=== PATIENT | female | born 1945 | race Caucasian/White ===

== ENCOUNTER 2016-06-11 08:27 | Outpatient (CLI) | payer MEDICARE, BC | END 2016-06-11 08:28 | disposition home or self-care (01) | DX: E10.9 Type 1 diabetes mellitus without complications (principal); E03.9 Hypothyroidism, unspecified ==

== ENCOUNTER 2016-06-15 06:57 | Outpatient (CLI) | payer BC, MEDICARE | END 2016-06-15 23:59 | DX: E10.9 Type 1 diabetes mellitus without complications (principal) ==

== ENCOUNTER 2016-06-30 07:41 | Outpatient (CLI) | payer MEDICARE, BC | END 2016-06-30 07:42 | disposition home or self-care (01) | DX: E10.9 Type 1 diabetes mellitus without complications (principal); Z79.899 Other long term (current) drug therapy; E55.9 Vitamin D deficiency, unspecified ==

== ENCOUNTER 2016-09-15 08:01 | Outpatient (CLI) | payer MEDICARE, BC ==
[2016-09-15 11:21] LABS: HEMOGLOBIN A1C 0.77 g/dL
== END 2016-09-15 08:02 | disposition home or self-care (01) ==
LOC: LAB.F 08:01
PROVIDERS: ATTEND Nurse Practitioner
DX: E10.9 Type 1 diabetes mellitus without complications (principal)
CPT/HCPCS: 36415; 83036

== ENCOUNTER 2016-12-22 07:27 | Outpatient (CLI) | payer MEDICARE, BC ==
[2016-12-22 12:46] LABS: HEMOGLOBIN A1C 0.8 g/dL
== END 2016-12-22 07:28 | disposition home or self-care (01) ==
LOC: LAB.F 07:27
PROVIDERS: ATTEND Internal Medicine Endocrinology, Diabetes & Metabolism
DX: E10.9 Type 1 diabetes mellitus without complications (principal)
CPT/HCPCS: 36415; 83036

== ENCOUNTER 2016-12-22 16:52 | Outpatient (CLI) | payer MEDICARE, BC | END 2016-12-22 16:53 | disposition EMS.NT | LOC: EMS 16:52 | PROVIDERS: ATTEND Surgery | DX: R42 Dizziness and giddiness (principal) ==

== ENCOUNTER 2017-01-12 07:29 | Outpatient (CLI) | payer MEDICARE, BC ==
[2017-01-12 12:00] LABS: BASOPHILS # (AUTO) 0.1 10^3/uL (0.0-0.1); BASOPHILS % (AUTO) 1.1 %; EOSINOPHILS # (AUTO) 0.2 10^3/uL (0.0-0.7); EOSINOPHILS % (AUTO) 3.4 %; HGB - HEMOGLOBIN 12.7 g/dL (12.0-16.0); LYMPHOCYTES % (AUTO) 15.4 %; MEAN CORPUSCULAR HEMOGLOBIN 31.6 pg (27.0-31.0); MEAN CORPUSCULAR HGB CONC 34.4 g/dL (32.0-36.0); MEAN CORPUSCULAR VOLUME 91.7 fL (81.0-99.0); MONOCYTES # (AUTO) 0.7 10^3/uL (0.0-1.0); MONOCYTES % (AUTO) 9.9 %; NEUTROPHILS # (AUTO) 4.8 10^3/uL (1.5-6.6); NEUTROPHILS % (AUTO) 70.2 %; NUCLEATED RED BLOOD CELLS AUTO 0.1 /100WBC; RED BLOOD COUNT 4.03 10^6/uL (4.20-5.40); RED CELL DISTRIBUTION WIDTH 13.5 % (12.0-15.0); UNCORRECTED WHITE BLOOD COUNT 6.8 x10^3/uL; WHITE BLOOD COUNT 6.8 x10^3/uL (4.8-10.8)
[2017-01-12 12:16] LABS: CHOL/HDL RATIO 2.5 (<4.4); CHOLESTEROL 199 mg/dL; GLUCOSE,FASTING 108 mg/dL (70-100); HDL CHOLESTEROL 79 mg/dL; LDL/HDL RATIO 1.4 (<4.4); TRIGLYCERIDES 40 mg/dL; VLDL CHOLESTEROL 8 mg/dL
[2017-01-12 12:30] LABS: THYROID STIMULATING HORMONE 4.19 uIU/mL (0.34-5.60)
[2017-01-12 12:32] LABS: HEMOGLOBIN A1C 0.77 g/dL
[2017-01-12 12:36] LABS: FERRITIN 46.6 ng/mL (11.0-306.8)
[2017-01-13 13:11] LABS: HOMOCYSTEINE 10.4 umol/L (<10.4)
[2017-01-14 20:01] LABS: 18 KD (IGG) BAND NON-REACTIVE; 23 KD (IGG) BAND NON-REACTIVE; 28 KD (IGG) BAND NON-REACTIVE; 30 KD (IGG) BAND NON-REACTIVE; 39 KD (IGG) BAND NON-REACTIVE; 41 KD (IGG) BAND REACTIVE; 41 KD (IGM) BLOT NON-REACTIVE; 45 KD (IGG) BAND NON-REACTIVE; 58 KD (IGG) BAND NON-REACTIVE; 66 KD (IGG) BAND NON-REACTIVE; 93 KD (IGG) BAND NON-REACTIVE
[2017-01-14 22:17] LABS: COPPER 114 mcg/dL (70-175)
== END 2017-01-12 07:30 | disposition home or self-care (01) ==
LOC: LAB.F 07:29
PROVIDERS: ATTEND Emergency Medicine
DX: D64.9 Anemia, unspecified (principal); E66.3 Overweight; E83.10 Disorder of iron metabolism, unspecified; E78.4 Other hyperlipidemia; E55.9 Vitamin D deficiency, unspecified; E11.9 Type 2 diabetes mellitus without complications; I51.9 Heart disease, unspecified; E78.2 Mixed hyperlipidemia; E53.9 Vitamin B deficiency, unspecified; E83.00 Disorder of copper metabolism, unspecified; E83.2 Disorders of zinc metabolism
CPT/HCPCS: 36415; 80061; 81599; 82306; 82525; 82607; 82728; 82947; 83036; 83090; 84443; 84481; 85025; 86141; 86617

== ENCOUNTER 2017-08-16 08:00 | Outpatient (CLI) | payer MEDICARE, BC ==
[2017-08-16 11:04] LABS: BASOPHILS # (AUTO) 0.1 10^3/uL (0.0-0.1); BASOPHILS % (AUTO) 0.9 %; EOSINOPHILS # (AUTO) 0.3 10^3/uL (0.0-0.7); EOSINOPHILS % (AUTO) 5.7 %; LYMPHOCYTES # (AUTO) 1.6 10^3/uL (1.5-3.5); LYMPHOCYTES % (AUTO) 26.4 %; MEAN CORPUSCULAR HEMOGLOBIN 31.7 pg (27.0-31.0); MEAN CORPUSCULAR HGB CONC 34.6 g/dL (32.0-36.0); MEAN CORPUSCULAR VOLUME 91.6 fL (81.0-99.0); MEAN PLATELET VOLUME 7.4 fL (7.9-10.8); MONOCYTES # (AUTO) 0.7 10^3/uL (0.0-1.0); MONOCYTES % (AUTO) 11.9 %; NEUTROPHILS # (AUTO) 3.4 10^3/uL (1.5-6.6); NEUTROPHILS % (AUTO) 55.1 %; PLT - PLATELET COUNT 296 10^3/uL (130-450); RED BLOOD COUNT 4.11 10^6/uL (4.20-5.40); RED CELL DISTRIBUTION WIDTH 13.6 % (12.0-15.0); WHITE BLOOD COUNT 6.1 x10^3/uL (4.8-10.8)
[2017-08-16 11:18] LABS: ALBUMIN/GLOBULIN RATIO 1.4 (1.0-2.2); ALKALINE PHOSPHATASE 69 IU/L (42-121); ALT ALANINE AMINOTRANSFERASE 17 IU/L (10-60); AST ASPARTATE AMINOTRANSFERASE 27 IU/L (10-42); BILIRUBIN,TOTAL 0.9 mg/dL (0.2-1.0); BUN - BLOOD UREA NITROGEN 14 mg/dL (6-20); CALCIUM 9.4 mg/dL (8.5-10.3); CARBON DIOXIDE - CO2 30 mmol/L (21-32); CHLORIDE 96 mmol/L (101-111); CHOL/HDL RATIO 2.7 (<4.4); CHOLESTEROL 191 mg/dL; CREATININE 0.5 mg/dL (0.4-1.0); GFR - MDRD 121 (>89); HDL CHOLESTEROL 70 mg/dL; SODIUM 134 mmol/L (135-145); TOTAL PROTEIN 6.8 g/dL (6.7-8.2)
[2017-08-16 11:40] LABS: LDL CHOLESTEROL,DIRECT 99 mg/dL; LDLD/HDL RATIO 1.4 (<4.4)
[2017-08-16 11:41] LABS: GLUCOSE 48 mg/dL (70-100)
[2017-08-17 14:12] LABS: HEPATITIS C ANTIBODY NON-REACTIVE (NON-REACTIVE)
== END 2017-08-16 08:01 | disposition home or self-care (01) ==
LOC: LAB.F 08:00
PROVIDERS: ATTEND Internal Medicine
DX: E03.9 Hypothyroidism, unspecified (principal); E78.5 Hyperlipidemia, unspecified; E10.9 Type 1 diabetes mellitus without complications; I10 Essential (primary) hypertension; Z72.89 Other problems related to lifestyle; Z79.899 Other long term (current) drug therapy
CPT/HCPCS: 36415; 80053; 80061; 83721; 84443; 85025; 86803

== ENCOUNTER 2017-09-10 07:21 | Outpatient (CLI) | payer MEDICARE, BC ==
[2017-09-10 10:40] LABS: HB2 TOTAL 14.9 g/dL; HEMOGLOBIN A1C 0.8 g/dL; HEMOGLOBIN A1C % 7.1 % (4.6-6.2)
== END 2017-09-10 07:22 | disposition home or self-care (01) ==
LOC: LAB.F 07:21
PROVIDERS: ATTEND Nurse Practitioner
DX: E10.9 Type 1 diabetes mellitus without complications (principal)
CPT/HCPCS: 36415; 83036

== ENCOUNTER 2017-10-20 10:46 | Outpatient (CLI) | payer MEDICARE, BC ==
--- NOTE | 2017-10-21 16:52 | Mammography Report ---
Procedure Date: 10/20/2017 Accession Number: [id number] / [id number] Procedure: ELIE - Screening Mammo Dig Bilat CPT Code: FULL RESULT: EXAM: Screening Mammo Dig Bilat DATE: 10/20/2017 11:49 AM CLINICAL HISTORY: 72-year-old with history of benign breast biopsy for screening TECHNIQUE: Bilateral CC and MLO views were obtained. COMPARISON: 01/20/2016 FINDINGS: The breasts demonstrate scattered fibroglandular densities bilaterally. Postbiopsy changes are stable. No suspicious masses, clustered microcalcifications, or regions of architectural distortion are identified. IMPRESSION: Benign findings RECOMMENDATION: Routine annual screening unless otherwise clinically indicated. BIRADS CATEGORY 2: Benign findings STANDARD QUALIFYING STATEMENTS: 1. This examination was reviewed with the aid of Computer-Aided Detection (CAD). 2. A negative or benign imaging report should not delay biopsy if clinically suspicious findings are present. Consider surgical consultation if warrented. More than 5% of cancers are not identified by imaging. 3. Dense breasts may obscure an underlying neoplasm.
== END 2017-10-20 10:47 | disposition home or self-care (01) ==
LOC: DI 10:46
PROVIDERS: ATTEND Internal Medicine
DX: Z12.31 Encounter for screening mammogram for malignant neoplasm of breast (principal)
CPT/HCPCS: 77067

== ENCOUNTER 2018-01-05 09:22 | Outpatient (CLI) | payer MEDICARE, BC ==
[2018-01-05 18:23] LABS: HEMOGLOBIN A1C 0.74 g/dL; HEMOGLOBIN A1C % 6.7 % (4.6-6.2)
== END 2018-01-05 09:23 | disposition home or self-care (01) ==
LOC: LAB.F 09:22
PROVIDERS: ATTEND Nurse Practitioner
DX: E10.9 Type 1 diabetes mellitus without complications (principal)
CPT/HCPCS: 36415; 83036

== ENCOUNTER 2018-03-28 09:28 | Emergency (ER) | payer MEDICARE, BC ==
[2018-03-28 12:14] VITALS: BP 143/65
--- NOTE | 2018-03-28 12:20 | XRAY Report ---
Reason: pain, bleeding s/p replacement Procedure Date: 03/28/2018 Accession Number: [id number] / [id number] Procedure: XR - Knee 3 View LT CPT Code: FULL RESULT: EXAM: LEFT KNEE RADIOGRAPHY EXAM DATE: 03/28/2018 11:26 AM. CLINICAL HISTORY: Pain, bleeding s/p replacement. COMPARISON: None. TECHNIQUE: 3 views. FINDINGS: Knee prosthesis is noted. Alignment appears normal. There is soft tissue swelling. Soft tissue air may be seen in the postoperative period. IMPRESSION: Knee prosthesis appears normally aligned. There is persistent soft tissue swelling. RADIA
--- NOTE | 2018-03-28 13:09 | ED Physician Documentation ---
PD HPI WOUND RECHECK - Stated complaint Stated Complaint: WOUND CHECK - Chief complaint Chief Complaint: Wound - Histroy obtained from History obtained from: Patient - History of Present Illness Location: Left Lower Extremity Timing - onset: How many days ago (2) Pain level max: 0 Pain level now: 0 Associated symptoms: Swelling, Drainage. No: Fever, Redness, Pain Similar symptoms before: Has not had sx before - Additional information Additional information: 72-year-old female with history of left knee replacement done at [facility] in [place] a week ago here with complaint of left knee bleeding for the past 2 days after excessively doing some physical therapy previous to that. She stated that she noticed that blood would be oozing when she is walking a lot. She had called her orthopedic clinic but there was no quick response. She has an appointment with her orthopedic doctor this coming . Review of Systems Ten Systems: 10 systems reviewed and negative Constitutional: denies: Fever, Myalgias Musculoskeletal: reports: Extremity swelling. denies: Back pain, Extremity pain, Joint pain Neurologic: denies: Generalized weakness, Focal weakness, Numbness PD PAST MEDICAL HISTORY - Past Medical History Past Medical History: Yes Endocrine/Autoimmune: Type 2 diabetes - Past Surgical History Past Surgical History: Yes Ortho: Knee replacement - Present Medications Home Medications: Ambulatory Orders Medication Instructions Recorded Confirmed Acetaminophen [Tylenol Extra 500 mg PO 03/28/18 Strength] Aspirin 81 mg PO 03/28/18 Atorvastatin [Lipitor] 0 mg 03/28/18 Celecoxib 200 mg PO 03/28/18 Fluticasone [Flonase] 1 sprays KIKI DAILY 03/28/18 03/28/18 Fluticasone/Salmeterol [Advair 1 each IH 03/28/18 100-50 Diskus] Levothyroxine Sodium [Synthroid] 137 mcg PO 03/28/18 Losartan/Hydrochlorothiazide 1 each PO 03/28/18 [Hyzaar 100-25 Tablet] Minocycline HCl 100 mg PO 03/28/18 Omeprazole 03/28/18 Oxycodone HCl 5 mg PO 03/28/18 Pramipexole Di-HCl [Mirapex] 0.125 mg PO 03/28/18 Ranitidine HCl [Zantac] 300 mg PO 03/28/18 Senna [Senokot] 03/28/18 03/28/18 amLODIPine [Norvasc] 03/28/18 - Allergies Allergies/Adverse Reactions: Allergies Allergy/AdvReac Type Severity Reaction Status Date / Time Sulfa (Sulfonamide Allergy Rash Verified 03/28/18 10:02 Antibiotics) ACEIs Allergy Dizziness Uncoded 03/28/18 10:02 - Social History Does the pt smoke?: No Smoking Status: Never smoker Does the pt drink ETOH?: No Does the pt have substance abuse?: No - Immunizations Immunizations are current?: Yes PD ED PE NORMAL - Vitals Vital signs reviewed: Yes - General General: Alert and oriented X 3, No acute distress, Well developed/nourished - HEENT HEENT: Moist mucous membranes - Cardiac Cardiac: RRR, Strong equal pulses - Respiratory Respiratory: No respiratory distress - Derm Derm: Warm and dry - Extremities Extremities: No calf tenderness / cord, Other (Left knee with swelling and ecchymosis from surgical procedure. Incision approximated no dehiscence but with scant amount of blood oozing out of the center of this incision. Sensation intact. Temperature normal. Pulses +2 from the popliteal, DP and PT.) - Neuro Neuro: Alert and oriented X 3 - Psych Psych: Normal mood, Normal affect Results - Vitals Vitals: Vital Signs - 24 hr 03/28/18 03/28/18 09:57 12:13 Temperature 36.5 C Heart Rate 67 65 Respiratory 14 18 Rate Blood Pressure 120/60 143/65 H O2 Saturation 97 96 Oxygen O2 Source Room air PD MEDICAL DECISION MAKING - ED course Complexity details: reviewed results, re-evaluated patient, considered differential (Postop complication, hematoma, poor healing, dehiscence), d/w patient, d/w family ED course: 1245 x-ray resulted. Patient inform about this. Instructed on incision/wound care. Instructed to apply pressure if bleeding. Instructed to keep her orthopedic appointment this coming . Instructed to elevate left knee or leg to decrease swelling.Patient will be given a copy CD of her x-ray to bring to her orthopedic doctor's appointment. Departure - Departure Disposition: 01 Home, Self Care Clinical Impression: Postoperative complication Qualifiers: Surgical complication system/body Area: musculoskeletal system Surgical complication type: hematoma History of knee replacement Qualifiers: Laterality: left Qualified Code(s): Z96.652 - Presence of left artificial knee joint Condition: Stable Instructions: Incision Care Comments: Left knee wound care: Keep the area clean and dry. Change dressing daily and as needed. First apply nonstick dressing then 4 x 4 than thick surgical pad dressing and wrap with gauze. Elevate your left knee and leg to decrease the swelling. Take it easy on your exercises and physical therapy until reevaluated by orthopedic doctor this coming . At your appointment bring the CD copy of the x-ray that was done here in the emergency room. If worse return to the emergency room.
== END 2018-03-28 13:40 | disposition home or self-care (01) ==
LOC: ED 09:28
DX: M96.830 Postprocedural hemorrhage of a musculoskeletal structure following a musculoskeletal system procedure (principal); Z96.652 Presence of left artificial knee joint; E11.9 Type 2 diabetes mellitus without complications; Z79.82 Long term (current) use of aspirin
CPT/HCPCS: 99283

== ENCOUNTER 2018-04-25 14:46 | Outpatient (CLI) | payer MEDICARE, BC | END 2018-04-25 14:47 | disposition EMS.NT | LOC: EMS 14:46 | PROVIDERS: ATTEND Surgery | DX: Z03.89 Encounter for observation for other suspected diseases and conditions ruled out (principal) ==

== ENCOUNTER 2018-11-24 12:47 | Outpatient (CLI) | payer MEDICARE, BC ==
[2018-11-24 17:26] LABS: CALCIUM 9.7 mg/dL (8.5-10.3); CREATININE 0.5 mg/dL (0.4-1.0)
[2018-11-24 17:34] LABS: CREATININE,URINE 44.8 mg/dL; MICROALBUM/CREATININE RATIO,UR 6.7 ug/mg (<30.0); MICROALBUMIN,URINE 0.3 mg/dL (0-300.0)
[2018-11-24 18:21] LABS: HB2 TOTAL 13.3 g/dL; HEMOGLOBIN A1C 0.59 g/dL; HEMOGLOBIN A1C % 6.2 % (4.6-6.2)
== END 2018-11-24 12:48 | disposition home or self-care (01) ==
LOC: LAB.S 12:47
PROVIDERS: ATTEND Nurse Practitioner
DX: E10.9 Type 1 diabetes mellitus without complications (principal)
CPT/HCPCS: 36415; 80048; 82043; 82570; 83036

== ENCOUNTER 2019-03-23 13:32 | Emergency (ER) | payer MEDICARE, BC ==
[2019-03-23 13:43] VITALS: BP 139/71
--- NOTE | 2019-03-23 14:12 | XRAY Report ---
Reason: cough, rt sided chest pain with inspiration Procedure Date: 03/23/2019 Accession Number: [id number] / [id number] Procedure: XR - Chest 2 View X-Ray CPT Code: 92972 Final Report FULL RESULT: EXAM: CHEST RADIOGRAPHY EXAM DATE: 03/23/2019 01:57 PM. CLINICAL HISTORY: Cough for 3 days, right-sided chest pain with inspiration. COMPARISON: None. TECHNIQUE: 2 views. FINDINGS: Lungs/Pleura: No focal opacities evident. No pleural effusion. No pneumothorax. Lung volumes are high and diaphragms are flattened. Mediastinum: Heart and mediastinal contours are unremarkable. Other: None. IMPRESSION: High lung volumes with flattened diaphragms can be seen with obstructive lung disease. Otherwise, no acute cardiopulmonary abnormality. RADIA
[2019-03-23] MEDS ORDERED: ALBUTEROL NEB 2.5 MG/3 ML INH STA (14:25)
--- NOTE | 2019-03-23 14:28 | ED Physician Documentation ---
PD HPI URI - Stated complaint Stated Complaint: SOA - Chief complaint Chief Complaint: Resp - History obtained from History obtained from: Patient - History of Present Illness Pain level max: 4 Pain level now: 3 Associated symptoms: Nasal congestion, Rhinorrhea. No: Fever, Chills Contributing factors: Sick contact Improves by: Rest Worsened by: Activity, Breathing - Additional information Additional information: 73-year-old female presents to the emergency department with rhinorrhea, congestion and coughing for the past several days. She states that her doctor called in albuterol inhaler and for her, but she has not picked it up yet. She also states that she has pain in the right chest when taking a deep breath. Worse with coughing as well. This is in the anterior right chest. No fevers. Better with rest Review of Systems Constitutional: denies: Fever, Chills GI: denies: Vomiting, Diarrhea Skin: denies: Rash Musculoskeletal: denies: Neck pain, Back pain Neurologic: denies: Headache PD PAST MEDICAL HISTORY - Past Medical History Past Medical History: Yes Endocrine/Autoimmune: Type 2 diabetes - Past Surgical History Past Surgical History: Yes Ortho: Knee replacement - Present Medications Home Medications: Ambulatory Orders Medication Instructions Recorded Confirmed Acetaminophen [Tylenol Extra 500 mg PO 03/28/18 Strength] Aspirin 81 mg PO 03/28/18 Atorvastatin [Lipitor] 0 mg 03/28/18 Celecoxib 200 mg PO 03/28/18 Fluticasone [Flonase] 1 sprays KIKI DAILY 03/28/18 03/28/18 Fluticasone/Salmeterol [Advair 1 each IH 03/28/18 100-50 Diskus] Levothyroxine Sodium [Synthroid] 137 mcg PO 03/28/18 Losartan/Hydrochlorothiazide 1 each PO 03/28/18 [Hyzaar 100-25 Tablet] Minocycline HCl 100 mg PO 03/28/18 Omeprazole 03/28/18 Oxycodone HCl 5 mg PO 03/28/18 Pramipexole Di-HCl [Mirapex] 0.125 mg PO 03/28/18 Senna [Senokot] 03/28/18 03/28/18 amLODIPine [Norvasc] 03/28/18 raNITIdine HCl [Zantac] 300 mg PO 03/28/18 Albuterol Sulf [Ventolin Hfa 1 - 2 puffs INH Q4HR PRN #1 inhaler 03/23/19 Inhaler] - Allergies Allergies/Adverse Reactions: Allergies Allergy/AdvReac Type Severity Reaction Status Date / Time Sulfa (Sulfonamide Allergy Rash Verified 03/23/19 13:43 Antibiotics) ACEIs Allergy Dizziness Uncoded 03/28/18 10:02 - Social History Does the pt smoke?: No Smoking Status: Never smoker Does the pt drink ETOH?: No Does the pt have substance abuse?: No - Immunizations Immunizations are current?: Yes PD ED PE NORMAL - Vitals Vital signs reviewed: Yes - General General: Alert and oriented X 3, No acute distress, Well developed/nourished - HEENT HEENT: PERRL, Ears normal, Moist mucous membranes, Pharynx benign - Neck Neck: Supple, no meningeal sign - Cardiac Cardiac: RRR, Strong equal pulses - Respiratory Respiratory: No respiratory distress, Other (Mildly diminished breath sounds bilaterally) - Abdomen Abdomen: Soft, Non tender, Non distended - Derm Derm: Warm and dry - Extremities Extremities: No edema - Neuro Neuro: Alert and oriented X 3 - Psych Psych: Normal mood, Normal affect Results - Vitals Vitals: Vital Signs - 24 hr 03/23/19 03/23/19 13:39 14:37 Temperature 36.4 C L Heart Rate 98 79 Respiratory 20 14 Rate Blood Pressure 139/71 H O2 Saturation 100 Oxygen O2 Source Room air - Rads (name of study) cxr Radiology: Prelim report reviewed, EMP read contemporaneously, See rad report (High lung volumes with flattened diaphragms can be seen with obstructive lung disease. Otherwise, no acute cardiopulmonary abnormality. ) PD MEDICAL DECISION MAKING - ED course Complexity details: reviewed results, re-evaluated patient, considered differential, d/w patient ED course: 73-year-old female presents to the emergency department that appears to be a viral upper respiratory infection. No pneumonia. Feels better after nebulizer treatment. She is well-appearing, nontoxic. Afebrile. No hypoxia. No respiratory distress. Patient counseled regarding signs and symptoms for which I believe and urgent re-evaluation would be necessary. Patient with good understanding of and agreement to plan and is comfortable going home at this time This document was made in part using voice recognition software. While efforts are made to proofread this document, sound alike and grammatical errors may occur. Departure - Departure Disposition: Home, Self Care Clinical Impression: Viral URI Condition: Good Instructions: ED URI Viral Follow-Up: Jessica Matson ARNP [Primary Care Provider] - Within 1 week Prescriptions: Albuterol Sulf [Ventolin Hfa Inhaler] 1 - 2 puffs INH Q4HR PRN #1 inhaler PRN Reason: Shortness Of Air/Wheezing Comments: Return if you worsen. Follow up with your doctor for further care. Your xray does not show any acute abnormalities today. Discharge Date/Time: 03/23/19 15:05
== END 2019-03-23 15:05 | disposition home or self-care (01) ==
LOC: ED 13:32
DX: J06.9 Acute upper respiratory infection, unspecified (principal); E11.9 Type 2 diabetes mellitus without complications
CPT/HCPCS: 71046; 94640; 99283; 99284

== ENCOUNTER 2019-09-14 12:49 | Outpatient (CLI) | payer MEDICARE, BC ==
[2019-09-14 15:51] LABS: BUN - BLOOD UREA NITROGEN 26 mg/dL (6-20); CALCIUM 9.6 mg/dL (8.5-10.3); CARBON DIOXIDE - CO2 32 mmol/L (21-32); CHLORIDE 95 mmol/L (101-111); CHOL/HDL RATIO 2.3 (<4.4); CHOLESTEROL 181 mg/dL; CREATININE 0.6 mg/dL (0.4-1.0); GLUCOSE 144 mg/dL (70-100); HDL CHOLESTEROL 80 mg/dL; SODIUM 133 mmol/L (135-145)
[2019-09-14 15:53] LABS: HB2 TOTAL 13.1 g/dL; HEMOGLOBIN A1C 0.56 g/dL; HEMOGLOBIN A1C % 6.1 % (4.6-6.2)
[2019-09-14 16:03] LABS: CREATININE,URINE 34.4 mg/dL; MICROALBUMIN,URINE < 0.2 mg/dL (0-300.0)
== END 2019-09-14 12:50 | disposition home or self-care (01) ==
LOC: LAB.S 12:49
PROVIDERS: ATTEND Nurse Practitioner Family
DX: E10.65 Type 1 diabetes mellitus with hyperglycemia (principal)
CPT/HCPCS: 36415; 80048; 80061; 82043; 82570; 83036; 83721

== ENCOUNTER 2019-10-31 15:08 | Outpatient (CLI) | payer MEDICARE, BC ==
--- NOTE | 2019-10-31 18:07 | XRAY Report ---
PROCEDURE: Calcaneus RT INDICATIONS: Chronic right heel pain TECHNIQUE: Two views of the calcaneus were acquired. COMPARISON: None FINDINGS: There is no fracture or dislocation. No evidence of ankle joint effusion. There is a plantar calcanea l spur with adjacent ligamentous calcification and thickening of the adjacent plantar soft tissues of the hindfoot. IMPRESSION: Findings suspicious for plantar fasciitis. Reviewed by: Nura Booker MD on 10/31/2019 6:06 PM PDT Approved by: Nura Booker MD on 10/31/2019 6:06 PM PDT Station ID: [id number]
== END 2019-10-31 15:09 | disposition home or self-care (01) ==
LOC: DI 15:08
PROVIDERS: ATTEND Podiatrist
DX: M79.671 Pain in right foot (principal)

== ENCOUNTER 2020-02-16 07:18 | Outpatient (CLI) | payer MEDICARE, BC ==
[2020-02-16 15:30] LABS: BASOPHILS # (AUTO) 0.1 10^3/uL (0.0-0.1); EOSINOPHILS # (AUTO) 0.3 10^3/uL (0.0-0.7); EOSINOPHILS % (AUTO) 4.3 %; HGB - HEMOGLOBIN 12.2 g/dL (12.0-16.0); LYMPHOCYTES # (AUTO) 1.5 10^3/uL (1.5-3.5); LYMPHOCYTES % (AUTO) 25.4 %; MEAN CORPUSCULAR HEMOGLOBIN 30.4 pg (27.0-31.0); MEAN CORPUSCULAR HGB CONC 31.7 g/dL (32.0-36.0); MEAN PLATELET VOLUME 9.6 fL (7.9-10.8); MONOCYTES # (AUTO) 0.6 10^3/uL (0.0-1.0); MONOCYTES % (AUTO) 10.5 %; NEUTROPHILS # (AUTO) 3.6 10^3/uL (1.5-6.6); NEUTROPHILS % (AUTO) 58.6 %; PLT - PLATELET COUNT 337 10^3/uL (130-450); RED BLOOD COUNT 4.01 10^6/uL (4.20-5.40); RED CELL DISTRIBUTION WIDTH 13.5 % (12.0-15.0); WHITE BLOOD COUNT 6.1 x10^3/uL (4.8-10.8)
[2020-02-16 15:50] LABS: ALBUMIN 4.2 g/dL (3.2-5.5); ALBUMIN/GLOBULIN RATIO 1.6 (1.0-2.2); ALKALINE PHOSPHATASE 77 IU/L (42-121); ALT ALANINE AMINOTRANSFERASE 20 IU/L (10-60); AST ASPARTATE AMINOTRANSFERASE 28 IU/L (10-42); BUN - BLOOD UREA NITROGEN 26 mg/dL (6-20); CALCIUM 9.5 mg/dL (8.5-10.3); CARBON DIOXIDE - CO2 28 mmol/L (21-32); CHLORIDE 100 mmol/L (101-111); CHOL/HDL RATIO 2.4 (<4.4); CHOLESTEROL 186 mg/dL; CREATININE 0.6 mg/dL (0.4-1.0); GLUCOSE 110 mg/dL (70-100); HDL CHOLESTEROL 78 mg/dL; LDL CHOLESTEROL,CALCULATED 98 mg/dL; LDL/HDL RATIO 1.3 (<4.4); SODIUM 136 mmol/L (135-145); TOTAL PROTEIN 6.9 g/dL (6.7-8.2); VLDL CHOLESTEROL 10 mg/dL
[2020-02-16 15:58] LABS: CREATININE,URINE 144.9 mg/dL; MICROALBUM/CREATININE RATIO,UR 6.9 ug/mg (<30.0)
[2020-02-16 17:25] LABS: FREE T4 (FREE THYROXINE) 1.22 ng/dL (0.58-1.64)
[2020-02-16 20:17] LABS: HEMOGLOBIN A1c% 6.5 % (4.27-6.07)
== END 2020-02-16 07:19 | disposition home or self-care (01) ==
LOC: LAB.S 07:18
PROVIDERS: ATTEND Registered Nurse
DX: E03.9 Hypothyroidism, unspecified (principal); E78.5 Hyperlipidemia, unspecified; E10.9 Type 1 diabetes mellitus without complications; I10 Essential (primary) hypertension
CPT/HCPCS: 36415; 80053; 80061; 82043; 82570; 83036; 83721; 84439; 84443; 85025

== ENCOUNTER 2020-05-29 07:29 | Outpatient (CLI) | payer MEDICARE, BC | END 2020-05-29 07:30 | disposition home or self-care (01) | LOC: LAB.S 07:29 | PROVIDERS: ATTEND Registered Nurse | DX: E03.9 Hypothyroidism, unspecified (principal) | CPT/HCPCS: 36415; 84443 ==

== ENCOUNTER 2020-05-31 13:31 | Outpatient (CLI) | payer MEDICARE, BC ==
--- NOTE | 2020-06-03 11:44 | Mammography Report ---
BILATERAL DIGITAL SCREENING MAMMOGRAM 3D/2D: 05/31/2020 CLINICAL: Routine screening. Comparison is made to exams dated: 10/20/2017 mammogram, 01/20/2016 mammogram - [facility], and 06/30/2002 mammogram - [facility] [place]. The tissue of both breasts is predominantly fatt y. No significant masses, calcifications, or other findings are seen in either breast. There has been no significant interval change. IMPRESSION: NEGATIVE There is no mammographic evidence of malignancy. A 1 year screening mammogram is recommended. This exam was interpreted at Station ID: [id number]. NOTE: For mammograms, a report in lay terms will be sent to the patient. Approximately 15% of breast malignancies will not be visualized mammographically. In the management of a palpable breast mass, a negative mammogram must not discourage biopsy of a clinically suspicious lesion. Electronically Signed By: Alexis Hartman acr/penrad:05/31/2020 15:03:56 ACR BI-RADS Category 1: Negative 3341F PARENCHYMAL PATTERN: (F) - The breast(s) demonstrate(s) diffuse fatty replacement. BI-RADS CATEGORY: (1) - 1 RECOMMENDATION: (ANNUAL) - Recommend routine annual screening mammography. [id number] 1 year screening LATERALITY: (B)
== END 2020-05-31 13:32 | disposition home or self-care (01) ==
LOC: DI 13:31
PROVIDERS: ATTEND Registered Nurse
DX: Z12.31 Encounter for screening mammogram for malignant neoplasm of breast (principal)

== ENCOUNTER 2020-07-25 08:17 | Outpatient (CLI) | payer MEDICARE, BC ==
[2020-07-25 15:32] LABS: BUN - BLOOD UREA NITROGEN 28 mg/dL (6-20); CALCIUM 9.5 mg/dL (8.5-10.3); CARBON DIOXIDE - CO2 31 mmol/L (21-32); CHLORIDE 95 mmol/L (101-111); CHOL/HDL RATIO 2.5 (<4.4); CHOLESTEROL 219 mg/dL; CREATININE 0.6 mg/dL (0.4-1.0); GFR - MDRD 97 (>89); GLUCOSE 84 mg/dL (70-100); HDL CHOLESTEROL 86 mg/dL; POTASSIUM 4.1 mmol/L (3.5-5.0); SODIUM 134 mmol/L (135-145); TRIGLYCERIDES 33 mg/dL
[2020-07-25 15:53] LABS: ESTIMATED AVERAGE GLUCOSE 151 mg/dL (70-100); HEMOGLOBIN A1c% 6.9 % (4.27-6.07)
[2020-07-25 16:00] LABS: CREATININE,URINE 59.7 mg/dL
[2020-07-25 16:46] LABS: MICROALBUMIN,URINE < 0.2 mg/dL (0-300.0)
== END 2020-07-25 08:18 | disposition home or self-care (01) ==
LOC: LAB.S 08:17
PROVIDERS: ATTEND Nurse Practitioner Family
DX: E10.649 Type 1 diabetes mellitus with hypoglycemia without coma (principal)
CPT/HCPCS: 36415; 80048; 80061; 82043; 82570; 83036; 83721

== ENCOUNTER 2020-08-15 08:00 | Outpatient (CLI) | payer MEDICARE, BC ==
[2020-08-15 21:29] LABS: BACTERIAL VAGINOSIS DNA POSITIVE (NEGATIVE); CANDIDA GLABRATA DNA NEGATIVE (NEGATIVE); CANDIDA GROUP DNA POSITIVE (NEGATIVE); CANDIDA KRUSEI DNA NEGATIVE (NEGATIVE); TRICHOMONAS VAGINALIS DNA NEGATIVE (NEGATIVE)
[2020-08-15 22:31] LABS: CHLAMYDIA TRACHOMATIS DNA NEGATIVE (NEGATIVE); NEISSERIA GONORRHOEAE DNA NEGATIVE (NEGATIVE); TRICHOMONAS VAGINALIS DNA NEGATIVE (NEGATIVE)
[2020-08-16 11:41] LABS: HEPATITIS C ANTIBODY NON-REACTIVE (NON-REACTIVE)
[2020-08-16 14:31] LABS: HIV AG/AB 4TH GEN NON-REACTIVE (NON-REACTIVE)
== END 2020-08-15 23:59 | disposition home or self-care (01) ==
LOC: LAB.S 08:00
PROVIDERS: ATTEND Physician Assistant Medical
DX: Z11.3 Encounter for screening for infections with a predominantly sexual mode of transmission (principal); Z20.828 Contact with and (suspected) exposure to other viral communicable diseases
CPT/HCPCS: 36415; 86592; 86803; 87481; 87491; 87591; 87661; 87801; G0475; 87389

== ENCOUNTER 2021-04-26 07:28 | Emergency (ER) | payer MEDICARE, BC ==
[2021-04-26 07:39] VITALS: BP 182/125
--- NOTE | 2021-04-26 07:46 | ED Physician Documentation ---
PD HPI SKIN - Stated complaint Stated Complaint: SPIDER BITE - Chief complaint Chief Complaint: Wound - History obtained from History obtained from: Patient - History of Present Illness Timing - onset: How many days ago (2) Timing - duration: Days (2) Timing - details: Gradual onset (initially painful and tender left axilla, with then red bump area. Increased red blotches today with increasing pain. She thought might be bites. Only located left axilla and lateral breast.), Still present Location: Chest Quality / character: Painful, Discolored (red patches). No: Draining Associated symptoms: No: Fever, Myalgias, N/V/D Similar symptoms before: Has not had sx before Review of Systems Constitutional: denies: Fever, Chills Nose: denies: Rhinorrhea / runny nose, Congestion Throat: denies: Sore throat Respiratory: denies: Cough GI: denies: Nausea, Vomiting, Diarrhea Neurologic: denies: Focal weakness, Numbness PD PAST MEDICAL HISTORY - Past Medical History Cardiovascular: None Respiratory: None Neuro: None Endocrine/Autoimmune: Type 2 diabetes - Past Surgical History Past Surgical History: Yes Ortho: Knee replacement - Present Medications Home Medications: Ambulatory Orders Medication Instructions Recorded Confirmed Aspirin 81 mg PO DAILY 03/28/18 04/26/21 Atorvastatin [Lipitor] 10 mg ORAL HS 03/28/18 04/26/21 Fluticasone [Flonase] 1 sprays KIKI DAILY 03/28/18 04/26/21 Fluticasone/Salmeterol [Advair 1 each IH DAILY 03/28/18 04/26/21 100-50 Diskus] Levothyroxine Sodium [Synthroid] 112 mcg PO DAILY 03/28/18 04/26/21 Losartan/Hydrochlorothiazide 1 each PO DAILY 03/28/18 04/26/21 [Hyzaar 100-25 Tablet] Omeprazole 20 mg ORAL DAILY 03/28/18 04/26/21 Pramipexole Di-HCl [Mirapex] 0.125 mg PO QPM 03/28/18 04/26/21 amLODIPine [Norvasc] 2.5 mg ORAL DAILY 03/28/18 04/26/21 HYDROcod/ACETAM 5/325 [Otho 5/325] 1 ea PO Q6H PRN #15 tablet 04/26/21 Insulin Lispro [Humalog] 1 - 8 units SQ ONCE 04/26/21 04/26/21 Meloxicam [Mobic] 7.5 mg PO BID PRN 04/26/21 04/26/21 Valacyclovir HCl [Valtrex] 1,000 mg PO TID 5 Days #15 tablet 04/26/21 dexAMETHasone [Decadron] 4 mg PO DAILY #5 tablet 04/26/21 - Allergies Allergies/Adverse Reactions: Allergies Allergy/AdvReac Type Severity Reaction Status Date / Time Sulfa (Sulfonamide Allergy Rash Verified 04/26/21 07:39 Antibiotics) ACEIs Allergy Dizziness Uncoded 04/26/21 07:39 - Social History Does the pt smoke?: No Smoking Status: Never smoker Does the pt drink ETOH?: No Does the pt have substance abuse?: No - Immunizations Immunizations are current?: Yes PD ED PE NORMAL - Vitals Vital signs reviewed: Yes - General General: Alert and oriented X 3, No acute distress, Well developed/nourished - Cardiac Cardiac: RRR, No murmur - Respiratory Respiratory: Clear bilaterally - Abdomen Abdomen: Soft - Derm Derm: Normal color, Warm and dry, Other (There is superficial patches of demarcated red clustered vesicles without any weeping in the lateral scapula to axilla to left breast area. No induration nor fluctuance felt.) Results - Vitals Vitals: Vital Signs - 24 hr 04/26/21 07:36 Temperature 36.2 C L Heart Rate 69 Respiratory 16 Rate Blood Pressure 182/125 H O2 Saturation 99 Oxygen O2 Source Room air PD MEDICAL DECISION MAKING - ED course Complexity details: considered differential (the pattern, appearance and texture of the rash is c/w shingles. ), d/w patient Departure - Departure Disposition: 01 Home, Self Care Clinical Impression: Shingles rash Qualifiers: Herpes zoster complications: without complications Qualified Code(s): B02.9 - Zoster without complications Condition: Stable Record reviewed to determine appropriate education?: Yes Instructions: ED Shingles Prescriptions: dexAMETHasone [Decadron] 4 mg PO DAILY #5 tablet HYDROcod/ACETAM 5/325 [Otho 5/325] 1 ea PO Q6H PRN #15 tablet PRN Reason: Pain Valacyclovir HCl [Valtrex] 1,000 mg PO TID 5 Days #15 tablet Comments: This looks and feels like shingles. We would treat it with antiviral medicines and anti-inflammatories. Valacyclovir 3 times a day for 5 days and Decadron steroid daily for 5 days. Clean the rash area with soap and water normally and apply some topical ointment. Recheck if signs of secondary infection around it. For pain, use Tylenol 500 to 650 mg 4 times a day. You can add occasional ibuprofen or naproxen if needed as well. Use hydrocodone dosing instead if needed every 6 hours for worse pain. I transmitted the prescriptions to [facility] in [place]. I am prescribing a short course of narcotic pain medication for you. These are potentially dangerous and addictive medications that should be used carefully. These medications may constipate you. Take an [id number] stool softener such as docusate twice daily with plenty of water while taking these medications. If you go 24 hours without a bowel movement, take [id number] MiraLAX, per package instructions. Do not drink or drive while taking these medications. If you received narcotic or sedating medications while in the emergency department do not drive for 24 hours. Store this medication in a safe, secure place and out of reach of children. It is a violation of federal law to give or sell this medication to another person or to use in a manner other than prescribed. The ED will not refill narcotic prescriptions, including prescriptions lost or stolen. You can dispose of unwanted medications at the [facility]'s office or at several pharmacies such as [facility]. Discharge Date/Time: 04/26/21 08:35
[2021-04-26] MEDS ORDERED: CHERRY SYRUP 10 ML UDC PO ONE (08:09)
[2021-04-26] MEDS ORDERED: valACYclovir 500 MG TABLET PO STA (08:09)
[2021-04-26] MEDS ORDERED: DEXAMETHASONE 10 MG/ML VIAL PO STA (08:09)
[2021-04-26] MEDS ORDERED: ACETAMINOPHEN 325 MG TABLET PO STA (08:09)
== END 2021-04-26 08:35 | disposition home or self-care (01) ==
LOC: ED 07:28
DX: B02.9 Zoster without complications (principal); E11.9 Type 2 diabetes mellitus without complications; Z79.4 Long term (current) use of insulin; Z79.82 Long term (current) use of aspirin
CPT/HCPCS: 99283; 99284; A9270

== ENCOUNTER 2023-11-13 11:56 | Emergency (ER) | payer MEDICARE, OTHER ==
[2023-11-13 12:31] VITALS: BP 122/74; O2SAT 100
--- NOTE | 2023-11-13 12:46 | ED Physician Documentation ---
History of Present Illness - Stated complaint Stated Complaint: MED REFILL(INSULIN VIAL BROKE) - Chief complaint Chief Complaint: General - History obtained from History obtained from: Patient - Additonal information Additional information: Ebony Fragoso is a 78-year-old female who has lost a vial of insulin. She does have more insulin available in [place]. She is staying here on the commerce and we will provide some insulin for the patient. Review of Systems Constitutional: denies: Fever Eyes: denies: Decreased vision Ears: denies: Ear pain Nose: denies: Congestion Throat: denies: Sore throat Respiratory: denies: Cough GI: denies: Vomiting PD PAST MEDICAL HISTORY - Past Medical History Cardiovascular: None Respiratory: None Neuro: None Endocrine/Autoimmune: Type 2 diabetes GI: GERD : None HEENT: None Musculoskeletal: None Derm: Herpes zoster - Past Surgical History Past Surgical History: Yes Ortho: Knee replacement - Present Medications Home Medications: Ambulatory Orders Medication Instructions Recorded Confirmed Aspirin 81 mg PO DAILY 03/28/18 04/26/21 Atorvastatin [Lipitor] 10 mg ORAL HS 03/28/18 04/26/21 Fluticasone [Flonase] 1 sprays KIKI DAILY 03/28/18 04/26/21 Fluticasone/Salmeterol [Advair 1 each IH DAILY 03/28/18 04/26/21 100-50 Diskus] Levothyroxine Sodium [Synthroid] 112 mcg PO DAILY 03/28/18 04/26/21 Losartan/Hydrochlorothiazide 1 each PO DAILY 03/28/18 04/26/21 [Hyzaar 100-25 Tablet] Omeprazole 20 mg ORAL DAILY 03/28/18 04/26/21 Pramipexole Di-HCl [Mirapex] 0.125 mg PO QPM 03/28/18 04/26/21 amLODIPine [Norvasc] 2.5 mg ORAL DAILY 03/28/18 04/26/21 HYDROcod/ACETAM 5/325 [[place] 5/325] 1 ea PO Q6H PRN #15 tablet 04/26/21 Insulin Lispro [Humalog] 1 - 8 units SQ ONCE 04/26/21 04/26/21 Meloxicam [Mobic] 7.5 mg PO BID PRN 04/26/21 04/26/21 Valacyclovir HCl [Valtrex] 1,000 mg PO TID 5 Days #15 tablet 04/26/21 dexAMETHasone [Decadron] 4 mg PO DAILY #5 tablet 04/26/21 Insulin Lispro [Humalog] 1 - 8 unit SUBQ ONCE #3 ml 11/13/23 - Allergies Allergies/Adverse Reactions: Allergies Allergy/AdvReac Type Severity Reaction Status Date / Time Sulfa (Sulfonamide Allergy Rash Verified 11/13/23 12:26 Antibiotics) ACEIs Allergy Dizziness Uncoded 11/13/23 12:26 - Social History Does the pt smoke?: No Smoking Status: Never smoker Does the pt drink ETOH?: No Does the pt have substance abuse?: No - Immunizations Immunizations are current?: Yes PD ED PE NORMAL - Vitals Vital signs reviewed: Yes (normal ) - General General: Alert and oriented X 3, No acute distress, Well developed/nourished - HEENT HEENT: Atraumatic, PERRL, EOMI - Respiratory Respiratory: No respiratory distress - Derm Derm: Normal color, Warm and dry, No rash - Extremities Extremities: No deformity, No edema - Neuro Neuro: Alert and oriented X 3, systems developer 2-12 intact, No motor deficit, No sensory deficit, Normal speech Eye Opening: Spontaneous Motor: Obeys Commands Verbal: Oriented GCS Score: 15 - Psych Psych: Normal mood, Normal affect Results - Vitals Vitals: Vital Signs - 24 hr 11/13/23 12:22 Temperature 36.4 C L Heart Rate 97 Respiratory 18 Rate Blood Pressure 122/74 O2 Saturation 100 Oxygen O2 Source Room air PD Medical Decision Making - ED course Complexity details: considered differential, d/w patient ED course: medication refill for humalog. Departure - Departure Disposition: 01 Home, Self Care Clinical Impression: Medication refill Condition: Stable Instructions: ED Diabetes General Info Prescriptions: Insulin Lispro [Humalog] 1 - 8 unit SUBQ ONCE #3 ml Comments: dorothea Beck have E scribed your Humalog to the [facility] in [place]. Forms: PCP List Discharge Date/Time: 11/13/23 13:11
== END 2023-11-13 13:11 | disposition home or self-care (01) ==
LOC: ED 11:56
DX: Z76.0 Encounter for issue of repeat prescription (principal); E11.9 Type 2 diabetes mellitus without complications; Z79.4 Long term (current) use of insulin; Z79.899 Other long term (current) drug therapy
CPT/HCPCS: 99281; 99282